=== PATIENT | female | born 1975 | race African-American/Black ===

== ENCOUNTER → 2016-11-29 | Outpatient (CLI) | payer MEDICAID ==
--- NOTE | ~2016-11-29 | CR126 ---
[facility] RADIOLOGY TEXT RESULTS PATIENT: RUBEN FERRER LOCATION: [facility] : 75 UNIT #: [id number] AGE: [address]: DAFNE COSME SEX: F ORDER DR: [id number] [place] [address] [facility] [place], [place] [address] [id number] O MR#: [id number] Acc #: [id number] NAME: RUBEN FERRER : 1975 SEX: F STUDY DATE/TIME: 11/29/2016 12:29 UNIT: [facility] ROOM: STUDY DESCRIPTION: CR Foot Complete Min 3 View Lt Attending Physician: Dafne Cosme Aprn Referring Physician: Dafne Cosme Aprn Ordering Physician: Dafne Cosme Aprn Primary Care Physician: Primary Care Physician No MEDICAL IMAGING REPORT This report is preliminary unless electronic signature is present EXAM 3 views left foot DATE 11/29/2016 HISTORY 41-year-old female with left foot pain after falling 3 months ago. COMPARISON None. FINDINGS There is a transversely oriented intraarticular mildly displaced fracture of the base of the fifth metatarsal. The proximal fracture fragment is retracted about 2 mm proximally. No joint dislocation is identified. No retained radiopaque foreign body is seen. Ankle joint appears intact. IMPRESSION 1. Displaced intraarticular fracture of the base of the left fifth metatarsal without dislocation. Dictated by... Alee Nolen M.D. THIS IS AN ELECTRONICALLY VERIFIED REPORT Alee Nolen M.D. at 11/30/2016 12:10 PM LLFabiana/lucina TD: 11/29/2016 20:08 [facility] RADIOLOGY TEXT RESULTS PATIENT: RUBEN FERRER LOCATION: [facility] : 75 UNIT #: [id number] AGE: [address]: DAFNE COSME SEX: F ORDER DR: JOB #: [id number] MEDICAL IMAGING REPORT Page 1 of 1 COPY
== END | disposition home or self-care (01) ==
LOC: CRAD 12:02
DX: M79.672 Pain in left foot (principal); S92.352A Displaced fracture of fifth metatarsal bone, left foot, initial encounter for closed fracture
CPT/HCPCS: 73630